=== PATIENT | male | born 1950 | race African-American/Black ===

== ENCOUNTER 2016-08-21 16:48 | Emergency (ER) | payer MEDICARE, OTHER ==
--- NOTE | ~2016-08-21 | CR63 ---
[facility] A Service of [facility] RADIOLOGY TEXT RESULTS PATIENT: KADEEM LANGFORD LOCATION: CFTX : 48 UNIT #: [id number] AGE: [address]: MARYLOU ZARATE SEX: M ORDER DR: [id number] [facility] [address] [place], [place] [address] [id number] E MR#: [id number] Acc #: [id number] NAME: KADEEM LANGFORD : 1950 SEX: M STUDY DATE/TIME: 08/21/2016 17:14 UNIT: [facility] ROOM: STUDY DESCRIPTION: CR Chest 2 View Attending Physician: Marylou Zarate Aprn Ordering Physician: Ed Doctor [id number] [facility] Primary Care Physician: [facility] MEDICAL IMAGING REPORT This report is preliminary unless electronic signature is present EXAM Chest PA and lateral 08/21/2016 HISTORY Cough and chest pain and generalized weakness for 2 weeks. Benign essential hypertension. FINDINGS PA and lateral examination of the chest upright shows a good expansion of the parenchyma with a normal distribution of the pulmonary vascularity. There is no indication of congestion, effusion, infiltrate, tumor, or nodular density. The pleural reflections and diaphragmatic contours are normal. The cardiac silhouette and mediastinal anatomy is within normal limits. IMPRESSION Normal chest. Dictated by... Lalit Fisher M.D. THIS IS AN ELECTRONICALLY VERIFIED REPORT Lalit Fisher M.D. at 08/23/2016 8:17 AM KRT/to TD: 08/21/2016 22:23 JOB #: [id number] MEDICAL IMAGING REPORT Page 1 of 1 COPY
[~2016-08-21 16:48] MED LIST: ACETAMINOPHEN650 M1 PO; AGGRENOX PO; ALB/IPRATROPIUM/1 E1 NEB; ALBUTEROL17 GM INH; ASPIRIN81 MG PO; AZITHROMYCIN500 MG PO; CERTAGEN PO; COUMADIN5 MG PO; COUMADIN7.5 MG PO; FERRO-TIME325 MG PO; FLEXERIL PO; FLEXERIL10 MG PO; FLONASE16 GM; FOLIC ACID1 MG PO; GLUCOTROL PO; HCTZ PO; HUMIBID-LA600 MG PO; HYDROCHLOROTH12.5 M1 PO; HYDROCODON-ACE1 EAC7 PO; LEVAQUIN PO; LISINOPRIL PO; LOPRESSOR PO; LORTAB 5/500 TA1 TA1 PO; LOVENOX SUBQ; MEDROL DOSEPAK4 MG; MEDROL DOSEPAK4 MG PO; NAPROSYN375 MG PO; NORVASC PO; NORVASC10 MG PO; OCEAN45 ML; PAXIL PO; PREDNISONE PO; PRILOSEC20 MG PO; VICODIN 5/1 TAB 5/50 PO; ZANTAC PO; ZESTRIL5 MG PO; ZITHROMAX PO; ZOCOR20 MG PO
[2016-08-21 17:30] LABS: INFLUENZA A NEG (NEG); INFLUENZA B NEG (NEG)
== END 2016-08-21 18:36 | disposition home or self-care (01) ==
LOC: CFTX 16:48
PROVIDERS: Nurse Practitioner Family
DX: J06.9 Acute upper respiratory infection, unspecified (principal); E11.9 Type 2 diabetes mellitus without complications; I10 Essential (primary) hypertension; I25.2 Old myocardial infarction; I25.10 Atherosclerotic heart disease of native coronary artery without angina pectoris; Z98.890 Other specified postprocedural states
CPT/HCPCS: 71020; 87804; 99283